=== PATIENT | male | born 1990 | race Caucasian/White ===

== ENCOUNTER 2018-10-14 15:35 | Emergency (ER) | payer BC, MEDICAID ==
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
[2018-10-14 17:52] LABS: BASO % 0.4 % (0-6); GRAN % 52.5 % (47-80); HEMATOCRIT 43.3 % (42.0-52.0); HEMOGLOBIN 14.6 gm/dl (14.0-18.0); LYMPH % 33.6 % (16-45); MEAN CELL VOLUME 87.3 fl (81-97); MEAN CORPUSCULAR HEMOGLOBIN 29.4 pg (27-33); MEAN CORPUSCULAR HGB CONC 33.7 g/dl (32-36); MONO % 12.5 % (0-9); PLATELET COUNT 340 K/uL (130-400); RED BLOOD COUNT 4.96 M/uL (4.40-5.70); RED CELL DISTRIBUTION WIDTH 13.6 % (11.5-14.5); WHITE BLOOD COUNT W/O DIFF 13.8 K/uL (4.2-12.2)
[2018-10-14] MEDS ORDERED: CEPHALEXIN 500 MG CAPSULE PO STA (18:08)
[2018-10-14] MEDS ORDERED: TMP/SMZ 160MG/800MG TAB PO ONE (18:08)
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
[2018-10-15 16:08] LABS: HEP A AB IGM Nonreactive (Nonreactive); HEPATITIS B CORE ANTIBODY,IGM Nonreactive (Nonreactive); HEPATITIS B SURFACE ANTIGEN Nonreactive (Nonreactive)
[2018-10-15 18:15] LABS: HEPATITIS C VIRUS ANTIBODY Reactive (Nonreactive)
== END 2018-10-14 18:31 | disposition home or self-care (01) ==
LOC: ER 15:35
DX: S60.221A Contusion of right hand, initial encounter (principal); L03.113 Cellulitis of right upper limb; W22.8XXA Striking against or struck by other objects, initial encounter; F17.210 Nicotine dependence, cigarettes, uncomplicated; F11.10 Opioid abuse, uncomplicated; F15.10 Other stimulant abuse, uncomplicated
CPT/HCPCS: 85025; 87390; 99283; 99284